=== PATIENT | female | born 1995 | race Caucasian/White ===

== ENCOUNTER 2016-05-05 11:52 | Emergency (ER) | payer OTHER ==
[2016-05-05 12:36] VITALS: BP 129/63
--- NOTE | 2016-05-05 12:44 | UC ---
Abdominal Pain Female HPI - HPI Summary HPI Summary: complaint of nausea vomiting and diarrhea, fever that started 2 days ago occurred for a day N/V has continued the next day today when she was dry heaving and she passed out - witnessed by elliott, LOC for a cuple of seconds -denies hitting head diarrhea has resolved today complaint of abdominal pain in RUQ LUQ since the beginning of illness - cramping pain denies dysuria states there was small amount blood in feces on the first day LMP 02/2016- OCPS -91 day rx - History of Current Complaint Chief Complaint: UCGI Stated Complaint: VOMITING/ABDOMINAL PAIN Time Seen by Provider: 05/05/16 12:17 Hx Obtained From: Patient Hx Last Menstrual Period: 03/04/16 Radiates: No Character: Cramping Aggravating Factor(s): Food Allergies/Adverse Reactions: Allergies Allergy/AdvReac Type Severity Reaction Status Date / Time No Known Allergies Allergy Verified 05/05/16 12:21 Home Medications: Home Medications PARoxetine HCL TAB* [Paxil TAB*] 15 mg PO DAILY 05/05/16 [History Confirmed ] Three Month Bcp, ? Name 1 tab PO DAILY 05/05/16 [History] PMH/Surg Hx/FS Hx/Imm Hx Previously Healthy: Yes - Surgical History Surgical History: Yes Surgery Procedure, Year, and Place: POLOPS REMOVED FROM THROAT -JUNE 2015 - Family History Known Family History: Positive: Hypertension - father, Diabetes - maternal grandmother Negative: Cardiac Disease - Social History Occupation: Student Alcohol Use: Rare Substance Use Type: None Smoking Status (MU): Never Smoked Tobacco Review of Systems Constitutional: Chills, Fatigue Skin: Negative Eyes: Negative ENT: Negative Respiratory: Negative Cardiovascular: Negative Gastrointestinal: Abdominal Pain, Vomiting, Diarrhea Genitourinary: Negative Motor: Negative Neurovascular: Negative Musculoskeletal: Negative Neurological: Negative Psychological: Negative All Other Systems Reviewed And Are Negative: Yes Physical Exam Triage Information Reviewed: Yes Appearance: No Pain Distress, Well-Nourished Vital Signs: Initial Vital Signs Temp 98.3 F 05/05/16 12:23 Pulse 79 05/05/16 12:23 Resp 18 05/05/16 12:23 Pulse Ox 99 05/05/16 12:23 Vital Signs Reviewed: Yes Eyes: Positive: Conjunctiva Clear ENT: Positive: Normal ENT inspection, Pharynx normal, TMs normal Neck: Positive: Supple, No Lymphadenopathy Respiratory: Positive: Lungs clear, Normal breath sounds, No respiratory distress, No accessory muscle use Cardiovascular: Positive: RRR, No Murmur, Pulses Normal Abdomen Description: Positive: No Organomegaly, Soft, Other: - slight RUQ/LUQ tenderness diffuse. Negative: CVA Tenderness (R), CVA Tenderness (L), Distended , Guarding Bowel Sounds: Positive: Hyperactive Musculoskeletal: Positive: No Edema Neurological: Positive: Alert Psychological Exam: Normal Skin Exam: Normal Abd Pain Female Course/Dx - Course Course Of Treatment: exam completed. diffuse abdominal tednerness, VS normal, tayo treat for gastroenteritis, pt states understanding to proceed to ED if her symptoms do not improve or worsen - Differential Dx/Diagnosis Differential Diagnosis: Appendicitis, Bowel Obstruction, Gall Bladder Disease, Other - gastroenteritis Provider Diagnoses: gastroenteritis - Physician Notification/Consults Discussed Patient Care With: Dr Wen Time Discussed With Above Provider: 13:03 Discharge - Discharge Plan Condition: Stable Disposition: HOME Prescriptions: Ondansetron TAB* [Zofran 4 MG Tab*] 4 mg PO Q6H PRN #20 tab PRN Reason: Nausea Patient Education Materials: Gastroenteritis (ED) Forms: *School Release Referrals: Non Staff,Doctor [Primary Care Provider] - Additional Instructions: GASTROENTERITIS What is Gastroenteritis? Gastroenteritis is an inflammation of the stomach and bowel that is often called the stomach "flu.'' It should only last 1 or 2 days. You usually get gastroenteritis because you've been in contact with someone who's already infected or because you've eaten contaminated food, or drank contaminated water. Many different viruses can cause intestinal problems but the signs and symptoms are usually the same: watery diarrhea, abdominal cramps, and nausea or vomiting. Symptoms Might Include: Abdominal cramps Diarrhea Nausea Vomiting Blood or mucus in stools Muscle aches Headaches Fever Extreme exhaustion Treatment Recommendations: Decrease activity until you feel better or the diarrhea and vomiting are gone. Take clear liquids, such as lesly mary, cola, water, tea, broth, and gelatin, for the first 24 hours or until the diarrhea and vomiting stops. During the next 24 hours you may eat bland foods like cooked cereals, rice, soup, bread, crackers, baked potatoes, eggs, or applesauce. Do not eat fruits, vegetables, fried or spicy foods, bran, candy, dairy products (such as milk or ice cream), apple juice, or alcoholic beverages. You may go back to your normal diet after 2 to 3 days. Drink 8 to 12 glasses of liquid a day. Most of the problems with gastroenteritis are caused by loss of water through vomiting and diarrhea. You may take ibuprofen (Motrin, Advil) or acetaminophen (Tylenol) for fever and muscle aches. Call Your Doctor or Return Here IF: Your symptoms last for more than 3 days. You have severe pain in the abdomen (area around the stomach) or rectum. You have a high temperature. You find blood, mucus, or worms in your stool. You have signs of dehydration (water loss), including dry mouth, excessive thirst, crinkled skin, little or no urination, dizziness, or light-headedness. You have any other new symptoms that worry you.
[2016-05-05] MEDS ORDERED: Ondansetron ODT TAB* 4 MG PO ONE (12:56)
== END 2016-05-05 13:31 | disposition home or self-care (01) ==
LOC: UCCORT 11:52
DX: K52.9 Noninfective gastroenteritis and colitis, unspecified (principal)
CPT/HCPCS: 99202; A9270-GY; G0463

== ENCOUNTER 2016-11-08 16:29 | Emergency (ER) | payer OTHER ==
[2016-11-08] MEDS ORDERED: NS 0.9% 1000 ML* 1,000 ML BOLUS ONE (17:32)
[2016-11-08] MEDS ORDERED: Ondansetron INJ* 2 MG/ML VIAL IV ONE (17:33)
[2016-11-08] MEDS ORDERED: Famotidine IV* 10 MG/ML 2 ML (20 mg) IV SLOW PU ONE (17:33)
--- NOTE | 2016-11-08 17:36 | UC ---
Abdominal Pain Female HPI - HPI Summary HPI Summary: 21 yo female with a 2 day hx or waxing and waning epigastric pain with nausea/ vomiting x 5/d. No diarrhea Some black and myalgias chills ?fever no uti symptoms no back pain no vag d/c or pelvic pain - History of Current Complaint Chief Complaint: UCGI Stated Complaint: VOMITTING/HX GASTRITIS Time Seen by Provider: 11/08/16 17:06 Hx Obtained From: Patient Hx Last Menstrual Period: 03/04/16 Onset/Duration: Gradual Onset, Lasting Days Timing: Constant Severity Initially: Moderate Severity Currently: Moderate Pain Intensity: 4 Pain Scale Used: 0-10 Numeric Location: Epigastric Radiates: No Character: Burning, Colicy Aggravating Factor(s): Food Alleviating Factor(s): NPO Associated Signs and Symptoms: Positive: Diaphoresis, Decreased Appetite, Nausea , Vomiting Allergies/Adverse Reactions: Allergies Allergy/AdvReac Type Severity Reaction Status Date / Time No Known Allergies Allergy Verified 11/08/16 17:10 Home Medications: Home Medications Amphetamine MIXED SALTS TAB* [Adderall TAB*] 15 mg PO DAILY 11/08/16 [History Confirmed 11/08/16] PMH/Surg Hx/FS Hx/Imm Hx Previously Healthy: Yes GI/ History: Other - hx gastritis Other GI/ History: gastritis - Surgical History Surgical History: Yes Surgery Procedure, Year, and Place: POLOPS REMOVED FROM THROAT -JUNE 2015 - Family History Known Family History: Positive: Hypertension - father, Diabetes - maternal grandmother, Other - mom had GB out Negative: Cardiac Disease - Social History Alcohol Use: Rare Substance Use Type: None Smoking Status (MU): Never Smoked Tobacco Review of Systems Constitutional: Negative Skin: Negative Eyes: Negative ENT: Negative Respiratory: Negative Cardiovascular: Negative Gastrointestinal: Abdominal Pain, Vomiting, Nausea Genitourinary: Negative Motor: Negative Neurovascular: Negative Musculoskeletal: Myalgia Neurological: Headache Psychological: Negative Is Patient Immunocompromised?: No All Other Systems Reviewed And Are Negative: Yes Physical Exam Triage Information Reviewed: Yes Appearance: Well-Appearing, No Pain Distress, Well-Nourished Vital Signs: Initial Vital Signs Temp 98.5 F 11/08/16 17:00 Pulse 70 11/08/16 17:00 Resp 16 11/08/16 17:00 BP 117/68 11/08/16 17:00 Pulse Ox 100 11/08/16 17:00 Vital Signs Reviewed: Yes Eyes: Positive: Conjunctiva Clear ENT: Positive: Hearing grossly normal. Negative: Nasal congestion, Nasal drainage, Tonsillar swelling, Tonsillar exudate, Trismus, Muffled/hoarse voice Neck: Positive: Supple, Nontender, No Lymphadenopathy Respiratory: Positive: Lungs clear, Normal breath sounds, No respiratory distress, No accessory muscle use Cardiovascular: Positive: RRR, No Murmur, Pulses Normal Abdomen Description: Negative: Nontender - epigastric tenderness, No Organomegaly, Soft, Bruit, CVA Tenderness (R), CVA Tenderness (L), Hepatomegaly , McBurney's Point Tenderness, Peritoneal Signs, Pulsatile Mass, Splenomegaly Musculoskeletal: Positive: ROM Intact Neurological: Positive: Alert, Muscle Tone Normal Psychological Exam: Normal Psychological: Positive: Normal Response To Family, Age Appropriate Behavior Skin Exam: Normal Re-Evaluation - Re-Evaluation First Eval Re-Evaluation Time: 18:55 Change: Improved - decreased nausea/now most tender RUQ Second Eval Re-Evaluation Time: 19:30 Change: Improved Comment: no pain or nausea, mild discomfort RUQ with deep palpation Abd Pain Female Course/Dx - Differential Dx/Diagnosis Provider Diagnoses: acute vomiting. ? gastritis vs biliary colic vs other Discharge - Discharge Plan Condition: Stable Disposition: HOME Prescriptions: Ondansetron TAB* [Zofran Tab*] 4 mg PO Q6H PRN #10 tab PRN Reason: Nausea Patient Education Materials: Acute Nausea and Vomiting (ED) Referrals: Non Staff,Doctor [Primary Care Provider] - As Soon As Possible Vinny Bello MD [Medical Doctor] - If Needed Additional Instructions: this could be due to gastritis or biliary colic TO ER FOR: new or worsening symptoms if vomiting recurs temp>100.4 I suggest you get evaluated to make sure this is not due to gall stones You may follow up with your provider in [place] or a local surgeon or the stone splitter surgeon in [place]
[2016-11-08 18:45] VITALS: BP 104/60
[2016-11-08] MEDS ORDERED: Ketorolac INJ* 30 MG/ML 1 ML VIAL IV ONE (18:54)
[2016-11-08] MEDS ORDERED: Ondansetron ODT TAB* 4 MG PO ONE (19:25)
== END 2016-11-08 19:47 | disposition home or self-care (01) ==
LOC: UCCORT 16:29
DX: R11.2 Nausea with vomiting, unspecified (principal); R10.13 Epigastric pain; R10.11 Right upper quadrant pain; R51 Headache; M79.1 Myalgia; R68.83 Chills (without fever)
CPT/HCPCS: 81003; 96361; 96374; 96375; 99212; A9270-GY; G0463; J1885; J2405

== ENCOUNTER 2016-11-16 14:56 | Emergency (ER) | payer OTHER ==
--- NOTE | 2016-11-16 15:31 | UC ---
Complaint Female HPI - HPI Summary HPI Summary: 21 YEAR OLD FEMALE PRESENTS WITH SEVERE VAGINAL BLEEDING. I WILL SEND HER TO THE ER. - History Of Current Complaint Stated Complaint: BLOOD CLOTS IN URINE/ABDOMINAL PAIN Time Seen by Provider: 11/16/16 15:24 Hx Obtained From: Patient Hx Last Menstrual Period: 03/04/16 Onset/Duration: Sudden Onset Timing: Constant Severity Initially: Moderate Severity Currently: Moderate Pain Scale Used: 0-10 Numeric - 5 - Allergies/Home Medications Allergies/Adverse Reactions: Allergies Allergy/AdvReac Type Severity Reaction Status Date / Time No Known Allergies Allergy Verified 11/16/16 15:25 Home Medications: Home Medications Escitalopram Oxalate [Lexapro 10 mg] 10 mg PO DAILY 11/16/16 [History Confirmed 11/16/16] Levonorgestrel-Ethinyl Estradi [Seasonique] 1 tab PO DAILY 11/16/16 [History Confirmed 11/16/16] Sucralfate TAB* [Carafate*] 1 gm PO BID 11/16/16 [History Confirmed 11/16/16] PMH/Surg Hx/FS Hx/Imm Hx Previously Healthy: Yes - Surgical History Surgical History: Yes Surgery Procedure, Year, and Place: POLOPS REMOVED FROM THROAT -JUNE 2015 - Family History Known Family History: Positive: Hypertension - father, Diabetes - maternal grandmother, Other - mom had GB out Negative: Cardiac Disease - Social History Alcohol Use: Rare Substance Use Type: None Smoking Status (MU): Never Smoked Tobacco Review of Systems Constitutional: Negative Skin: Negative Eyes: Negative ENT: Negative Respiratory: Negative Cardiovascular: Negative Gastrointestinal: Negative Genitourinary: Vaginal/Penile Discharge, Abnormal Bleeding Motor: Negative Neurovascular: Negative Musculoskeletal: Negative Neurological: Negative Psychological: Negative All Other Systems Reviewed And Are Negative: Yes Physical Exam Triage Information Reviewed: Yes Vital Signs Reviewed: Yes Eye Exam: Normal ENT Exam: Normal Dental Exam: Normal Neck exam: Normal Neck: Positive: 1 Respiratory Exam: Normal Cardiovascular Exam: Normal Abdominal Exam: Normal Musculoskeletal Exam: Normal Neurological Exam: Normal Psychological Exam: Normal Skin Exam: Normal Complaint Female Dx - Differential Dx/Diagnosis Provider Diagnoses: VAGINAL BLEEDING Discharge - Discharge Plan Condition: Stable Disposition: HOME Patient Education Materials: Dysfunctional Uterine Bleeding (ED) Referrals: Non Staff,Doctor [Primary Care Provider] - Additional Instructions: PLEASE GO TO THE ER FOR VAGINAL BLEEDING.
[2016-11-16 15:38] VITALS: BP 114/67
== END 2016-11-16 15:43 | disposition home or self-care (01) ==
LOC: UCCORT 14:56
DX: N93.9 Abnormal uterine and vaginal bleeding, unspecified (principal)
CPT/HCPCS: 99211; G0463

== ENCOUNTER 2019-01-01 14:41 | Emergency (ER) | payer OTHER ==
--- OUTSIDE RECORDS SUMMARY | 2019-01-01 16:23 | XMS REPORT | Continuity of Care Document ---
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 Address [address] [facility] [address] [place] [address] Care Team Providers Name Role Phone Self Referred Patient Care Team Information Chemical Sprayer [phone] Quang Baptiste MD - Family Medicine Care Team Information Chemical Sprayer Problems Description No Information Available Social History Type Date Description Comments Sex Unknown Tobacco Use Start: Unknown Patient has never smoked Smoking Status Reviewed: 11/26/18 Patient has never smoked Allergies, Adverse Reactions, Alerts Active Allergies Reaction Severity Comments Date Cipro vomiting 11/26/2018 Medications Active Medications SIG Qnty Indications Ordering Provider Date Diflucan 1 tab every 2tabs N76.0 Mesha Hudson, 11/26/2018 150mg Tablets otther day x 2 UPSETTING MACHINE 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 doses Lexapro 1 by mouth every Unknown 20mg Tablets day Mirena (52 MG) Unknown 20mcg/24HR IUD Adderall XR one tab by mouth Unknown 20mg Caps every in the ER 24HR morning Immunizations Description No Information Available Vital Signs Date Vital Result Comment 11/26/2018 12:21pm Height 63 inches 5'3" Weight 166.12 lb Weight 75.354 kg BMI (Body Mass Index) 29.4 kg/m2 BP Systolic 116 mmHg BP Diastolic 82 mmHg Heart Rate 74 /min Respiratory Rate 16 /min Last Menstrual Period 5776057 O2 Saturation Level with Exercise 98 % Body Temperature 98.4 F Results Test Date Facility Test Result H/L Range Note Vaginitis 11/27/19 [facility] Trichomonas NOT DETECTED Not 1 Direct Test 19 [phone] Probe Detected Gardnerella Probe NOT DETECTED Not Detected Rajwinder Probe NOT DETECTED Not Detected GC/Chlam[facility] C. Trachomatis NOT Not 2 Amplified Dna [phone] DETECTED Detected Probe N. Gonorrhoeae NOT DETECTED Not Detected 3 1 THIS TEST WAS PERFORMED AT: [facility] [address] [place] [address];[address] [place] [address] YAMILE KAUR MD 2 This test was performed using the APTIMA COMBO2(R) Assay (GEN-PROBE(R). The analytical performance characteristics of this assay, when used to test [facility](R) specimens have been determined by [employer]. 3 This test was performed using the APTIMA COMBO2(R) Assay (GEN-PROBE(R). The analytical performance characteristics of this assay, when used to test [facility](R) specimens have been determined by [employer]. THIS TEST WAS PERFORMED AT: [facility] [address] [place] [address];[address] [place] [address] YAMILE KAUR MD Procedures Description No Information Available Medical Devices Description No Information Available Encounters Description No Information Available Assessments Date Code Description Provider 11/26/2018 N76.0 Acute vaginitis ANDER Irving Plan of Treatment 11/26/2018 - LO IrvingPN76.0 Acute vaginitisNew Medication:Diflucan 150 mg - 1 tab every otther day x 2 dosesComments:meds as directedwill call iwht culture results if anything needs to be changedreturn for any concerns Functional Status Description No Information Available Mental Status Description No Information Available Referrals Description No Information Available
--- OUTSIDE RECORDS SUMMARY | 2019-01-01 16:23 | XMS REPORT | Continuity of Care Document ---
:1995 External Reference #:[id number] Author Name ANDER Irving (transmitted by agent of provider Bushra Hines) Address [address] [address] Care Team Providers Name Role Phone Self Referred Patient Care Team Information Internal Medicine Physician Assistant [phone] Problems Description No Information Available Social History Type Date Description Comments Sex Unknown Tobacco Use Start: Unknown Patient has never smoked Smoking Status Reviewed: 11/26/18 Patient has never smoked Allergies, Adverse Reactions, Alerts Active Allergies Reaction Severity Comments Date Cipro vomiting 11/26/2018 Medications Active Medications SIG Qnty Indications Ordering Provider Date Lexapro 1 by mouth every Unknown 20mg Tablets day Mirena (52 MG) Unknown 20mcg/24HR IUD Adderall XR one tab by mouth Unknown 20mg Caps ER every in the 24HR morning Immunizations Description No Information Available Vital Signs Date Vital Result Comment 11/26/2018 12:21pm Height 63 inches 5'3" Weight 166.12 lb Weight 75.354 kg BMI (Body Mass Index) 29.4 kg/m2 BP Systolic 116 mmHg BP Diastolic 82 mmHg Heart Rate 74 /min Respiratory Rate 16 /min Last Menstrual Period 5961986 O2 Saturation Level with Exercise 98 % Body Temperature 98.4 F Results Description No Information Available Procedures Description No Information Available Medical Devices Description No Information Available Encounters Description No Information Available Assessments Description No Information Available Plan of Treatment No Information Available Functional Status Description No Information Available Mental Status Description No Information Available Referrals Description No Information Available
[2019-01-01 16:32] VITALS: BP 117/73
--- NOTE | 2019-01-01 16:55 | UC ---
Respiratory Complaint HPI - HPI Summary HPI Summary: C/O cough, with wheezing, congestion and sinus pain x 6 days. not improving. Some chills and fatigue. - History of Current Complaint Chief Complaint: UCGeneralIllness Stated Complaint: COLD, CHEST CONGESTION Time Seen by Provider: 01/01/19 16:34 Hx Obtained From: Patient Hx Last Menstrual Period: 03/04/16 ?: No Onset/Duration: Gradual Onset, Lasting Days - 6, Still Present Timing: Constant Severity Initially: Mild Severity Currently: Moderate Pain Intensity: 8 Character: Cough: Nonproductive - occasionally productive Aggravating Factors: Deep Breaths, Recumbent Position Alleviating Factors: Upright Position Associated Signs And Symptoms: Positive: Chills, Wheezing, URI, Nasal Congestion , Sinus Discomfort Related History: Seasonal Allergies - Allergies/Home Medications Allergies/Adverse Reactions: Allergies Allergy/AdvReac Type Severity Reaction Status Date / Time ciprofloxacin [From Cipro] Allergy Vomiting Verified 01/01/19 16:32 Home Medications: Home Medications Ibuprofen TAB* [Motrin TAB* 400 MG] 400 mg PO Q6H PRN 01/01/19 [History Confirmed 01/01/19] Levonorgestrel (Iud) [Mirena IUD] 20 mcg IU DAILY 01/01/19 [History Confirmed ] PMH/Surg Hx/FS Hx/Imm Hx Other Neurological History: ADHD Psychological History: Anxiety, Depression - Surgical History Surgical History: Yes Surgery Procedure, Year, and Place: POLOPS REMOVED FROM THROAT -JUNE 2015 - Family History Known Family History: Positive: Hypertension - father, Diabetes - maternal grandmother, Other - mom had GB out Negative: Cardiac Disease - Social History Occupation: Student Lives: Dormitory/Roommates Alcohol Use: Rare Substance Use Type: None Smoking Status (MU): Never Smoked Tobacco Review of Systems All Other Systems Reviewed And Are Negative: Yes Constitutional: Positive: Chills, Fatigue ENT: Positive: Nasal Discharge, Sinus Pain/Tenderness Respiratory: Positive: Shortness Of Breath, Cough Physical Exam Triage Information Reviewed: Yes Appearance: No Pain Distress, Well-Nourished, Ill-Appearing Vital Signs: Initial Vital Signs Temp 98.2 F 01/01/19 16:28 Pulse 74 01/01/19 16:28 Resp 16 01/01/19 16:28 BP 117/73 01/01/19 16:28 Pulse Ox 100 01/01/19 16:28 Vital Signs Reviewed: Yes Eyes: Positive: Conjunctiva Clear ENT: Positive: Pharynx normal, Nasal congestion - with allergic changes, TMs normal, Sinus tenderness - frontal/ maxillary Neck exam: Normal Respiratory: Positive: Wheezing - expiratory wheezing with coughing Cardiovascular Exam: Normal Musculoskeletal Exam: Normal Neurological Exam: Normal Psychological Exam: Normal Skin Exam: Normal Respiratory Course/Dx - Differential Dx/Diagnosis Differential Diagnosis/HQI/PQRI: Asthma, Lower Resp Infection, Sinusitis Provider Diagnosis: Upper respiratory infection with cough and congestion, Acute bacterial sinusitis, Acute bronchospasm Discharge ED - Sign-Out/Discharge Documenting (check all that apply): Patient Departure All imaging exams completed and their final reports reviewed: No Studies - Discharge Plan Condition: Stable Disposition: HOME Prescriptions: Albuterol HFA INHALER* [Ventolin HFA Inhaler*] 2 puff INH Q4H PRN #1 mdi PRN Reason: Wheezing Amoxicillin PO (*) [Amoxicillin 875 MG (*)] 875 mg PO BID #20 tab predniSONE TAB* [Deltasone 20 MG TAB*] 60 mg PO DAILY #18 tab Patient Education Materials: Sinusitis (ED), Bronchospasm (ED), How to Use a Metered-Dose Inhaler (ED) Referrals: No Primary Care Phys,NOPCP [Primary Care Provider] - - Billing Disposition and Condition Condition: STABLE Disposition: Home
== END 2019-01-01 17:03 | disposition home or self-care (01) ==
LOC: UCCORT 14:41
DX: J01.90 Acute sinusitis, unspecified (principal); J98.01 Acute bronchospasm; J06.9 Acute upper respiratory infection, unspecified; R09.81 Nasal congestion; R53.83 Other fatigue; R05 Cough; B96.89 Other specified bacterial agents as the cause of diseases classified elsewhere; Z88.1 Allergy status to other antibiotic agents
CPT/HCPCS: 99212; G0463